=== PATIENT | male | born 1985 | race Caucasian/White ===

== ENCOUNTER 2016-08-03 11:43 | Emergency (ER) | payer SELFPAY ==
--- NOTE | 2016-08-03 12:05 | ER Document Report ---
HPI - HPI Patient complains to provider of: wood right medial thigh causing him to twist leg Onset: This morning Onset/Duration: Sudden Quality of pain: Achy Pain Level: 5 Context: 30 yo male using wood splitter had piece of wood hit his right medial thigh. No puncture through pants. Caused him to twist the leg. Hurts to walk on it. Associated Symptoms: None Exacerbated by: Walking Relieved by: Denies Similar symptoms previously: No Recently seen / treated by doctor: No - ROS ROS below otherwise negative: Yes Systems Reviewed and Negative: Yes All other systems reviewed and negative Past Medical History - General Information source: Patient - Social History Smoking Status: Current Every Day Smoker Frequency of alcohol use: None Drug Abuse: None Lives with: Spouse/Significant other Family History: Reviewed & Not Pertinent Pulmonary Medical History: Reports: Hx Asthma - pediatric Past Surgical History: Reports: Hx Oral Surgery - dental, Hx Tonsillectomy - Immunizations Immunizations up to date: Yes Hx Diphtheria, Pertussis, Tetanus Vaccination: Yes - 2013 Vertical Provider Document - CONSTITUTIONAL Agree With Documented VS: Yes Exam Limitations: No Limitations General Appearance: No Apparent Distress - INFECTION CONTROL TRAVEL OUTSIDE OF THE [place] IN LAST 30 DAYS: No - HEENT HEENT: Normocephalic - NECK Neck: Supple - RESPIRATORY O2 Sat by Pulse Oximetry: 98 - GI/ABDOMEN Gastrointestinal: Abnormal Bowel Sounds - MUSCULOSKELETAL/EXTREMETIES Musculoskeletal/Extremeties: MAEW, FROM, Eccymosis - mild medial right thigh. non tender bone, no knee effusion. negative: No Edema - NEURO Level of Consciousness: Awake, Alert - DERM Integumentary: Warm, Dry, No Rash Course - Vital Signs Vital signs: Temp Pulse Resp BP Pulse Ox 97.6 F 66 18 139/88 H 98 08/03/16 11:51 08/03/16 11:49 08/03/16 11:49 08/03/16 11:49 08/03/16 11:49 Discharge - Discharge Clinical Impression: right thigh contusion, Strain of muscle, fascia and tendon of the posterior muscle group at thigh level, right thigh, initial encounter Condition: Good Disposition: HOME, SELF-CARE Instructions: Warm Packs ([facility]), Oral Narcotic Medication ([facility]), Contusion ([facility]) , Muscle Strain ([facility]), Myalagia (Muscle Pain) ([facility]) Additional Instructions: warm compress to er if worse Prescriptions: Hydrocodone Bit/Acetaminophen [Hydrocodon-Acetaminophen 5-325] 1 - 2 each PO Q4HP PRN #15 tablet PRN Reason: Forms: Return to Work Referrals: NATIVIDAD MARINO PA-C [Primary Care Provider] - Follow up as needed
[2016-08-03 12:27] VITALS: BP 134/78
== END 2016-08-03 12:25 | disposition home or self-care (01) ==
LOC: ER 11:43
DX: S70.11XA Contusion of right thigh, initial encounter (principal); S76.311A Strain of muscle, fascia and tendon of the posterior muscle group at thigh level, right thigh, initial encounter; W20.8XXA Other cause of strike by thrown, projected or falling object, initial encounter; F17.200 Nicotine dependence, unspecified, uncomplicated
CPT/HCPCS: 99283

== ENCOUNTER 2016-08-23 13:24 | Emergency (ER) | payer SELFPAY ==
--- NOTE | 2016-08-23 13:43 | ER Document Report ---
ED Medical Screen (RME) - General Time seen by provider: 13:43 Mode of Arrival: Ambulatory Information source: Patient TRAVEL OUTSIDE OF THE [place] IN LAST 30 DAYS: No - General Stated Complaint: HAND PAIN Notes: 30 yo male got 3rd and 4th right fingertips caught between 2 logs this morning. Ultram did not relieve the pain. (YAHIR MARTINEZ) - Related Data Allergies/Adverse Reactions: erythromycin base [Erythromycin Base] Allergy (Intermediate, Verified 08/23/16 13:44) stabbing abdominal pains ibuprofen [From Motrin] Allergy (Verified 08/23/16 13:44) Past Medical History - Past Medical History Cardiac Medical History: Denies: Hx Coronary Artery Disease, Hx Hypertension Pulmonary Medical History: Reports: Hx Asthma - pediatric Neurological Medical History: Denies: Hx Migraine Endocrine Medical History: Denies: Hx Diabetes Mellitus Type 1, Hx Diabetes Mellitus Type 2 Renal/ Medical History: Denies: Hx Epididymitis, Hx Renal Insufficiency, Hx Testicular Torsion Malignancy Medical History: Denies Hx Testicular Cancer GI Medical History: Denies: Hx Gastritis, Hx Gastroesophageal Reflux Disease, Hx Liver Failure Psychiatric Medical History: Denies: Hx Anxiety, Hx Bipolar Disorder, Hx Depression, Hx Schizophrenia Infectious Medical History: Denies: Hx MRSA Past Surgical History: Reports: Hx Oral Surgery - dental, Hx Tonsillectomy - Immunizations Immunizations up to date: Yes Hx Diphtheria, Pertussis, Tetanus Vaccination: Yes - 2013 Doctor's Discharge - Discharge Clinical Impression: Hand contusion Qualifiers: Encounter type: initial encounter Laterality: unspecified laterality Qualified Code(s): S60.229A - Contusion of unspecified hand, initial encounter Condition: Good Disposition: HOME, SELF-CARE Instructions: Contusion ([facility]), Ice Packs ([facility]) Additional Instructions: Follow-up with your primary care physician. Your x-ray today shows no signs of fracture. Your examination reveals no signs of ligamentous injury. More likely have a back contusion of your hand. Prescriptions: Tramadol HCl [Ultram 50 mg Tablet] 50 mg PO ASDIR PRN #10 tablet PRN Reason: Forms: Return to Work Referrals: NATIVIDAD MARINO PA-C [Primary Care Provider] - Follow up as needed
[2016-08-23 13:45] VITALS: BP 138/73
--- NOTE | 2016-08-23 22:23 | ER Document Report ---
ED General - General Chief Complaint: Hand Injury Stated Complaint: HAND PAIN Mode of Arrival: Ambulatory TRAVEL OUTSIDE OF THE [place] IN LAST 30 DAYS: No - HPI Patient complains to provider of: right hand injury Notes: Patient coming in after having his right hand crushed in between 2 logs working today. Patient states he was in full [place]. Patient states he took Ultram at home with no relief of pain. Patient denies any paresthesias in his hands. Denies fevers chills nausea vomiting. - Related Data Allergies/Adverse Reactions: erythromycin base [Erythromycin Base] Allergy (Intermediate, Verified 08/23/16 13:44) stabbing abdominal pains ibuprofen [From Motrin] Allergy (Verified 08/23/16 13:44) Past Medical History - General Information source: Patient - Social History Smoking Status: Current Every Day Smoker Chew tobacco use (# tins/day): No Frequency of alcohol use: None Drug Abuse: None Family History: Reviewed & Not Pertinent Patient has suicidal ideation: No Patient has homicidal ideation: No - Past Medical History Cardiac Medical History: Denies: Hx Coronary Artery Disease, Hx Hypertension Pulmonary Medical History: Reports: Hx Asthma - pediatric Neurological Medical History: Denies: Hx Migraine Endocrine Medical History: Denies: Hx Diabetes Mellitus Type 1, Hx Diabetes Mellitus Type 2 Renal/ Medical History: Denies: Hx Epididymitis, Hx Peritoneal Dialysis, Hx Renal Insufficiency, Hx Testicular Torsion Malignancy Medical History: Denies Hx Testicular Cancer GI Medical History: Denies: Hx Gastritis, Hx Gastroesophageal Reflux Disease, Hx Liver Failure Psychiatric Medical History: Denies: Hx Anxiety, Hx Bipolar Disorder, Hx Depression, Hx Schizophrenia Infectious Medical History: Denies: Hx MRSA Past Surgical History: Reports: Hx Oral Surgery - dental, Hx Tonsillectomy - Immunizations Immunizations up to date: Yes Hx Diphtheria, Pertussis, Tetanus Vaccination: Yes - 2013 Review of Systems - Review of Systems Constitutional: No symptoms reported EENT: No symptoms reported Cardiovascular: No symptoms reported Respiratory: No symptoms reported Gastrointestinal: No symptoms reported Genitourinary: No symptoms reported Male Genitourinary: No symptoms reported Musculoskeletal: Other - Right hand pain Skin: No symptoms reported Hematologic/Lymphatic: No symptoms reported Neurological/Psychological: No symptoms reported Physical Exam - Vital signs Vitals: Temp Pulse Resp BP Pulse Ox 97.8 F 73 16 138/73 H 99 08/23/16 13:28 08/23/16 13:28 08/23/16 13:28 08/23/16 13:28 08/23/16 13:28 Interpretation: Normal - General General appearance: Appears well, Alert - HEENT Head: Normocephalic, Atraumatic Eyes: Normal Pupils: PERRL - Respiratory Respiratory status: No respiratory distress Chest status: Nontender Breath sounds: Normal Chest palpation: Normal - Cardiovascular Rhythm: Regular Heart sounds: Normal auscultation Murmur: No - Abdominal Inspection: Normal Distension: No distension Bowel sounds: Normal Tenderness: Nontender Organomegaly: No organomegaly - Back Back: Normal, Nontender - Extremities General upper extremity: Nontender, Normal color, Normal ROM, Normal temperature. No: Normal inspection - Multiple abrasions to the right hand Refills less than 2 seconds. Patient is able to make a fist and extend his fingers. Diffuse tenderness mild swelling no signs of compartment syndrome. General lower extremity: Normal inspection, Nontender, Normal color, Normal ROM , Normal temperature, Normal weight bearing. No: Marlon's sign - Neurological Neuro grossly intact: Yes Cognition: Normal Orientation: AAOx4 [place] Coma Scale Eye Opening: Spontaneous [place] Coma Scale Verbal: Oriented [place] Coma Scale Motor: Obeys Commands Kaylah Coma Scale Total: 15 Speech: Normal Motor strength normal: LUE, RUE, LLE, RLE Sensory: Normal - Psychological Associated symptoms: Normal affect, Normal mood - Skin Skin Temperature: Warm Skin Moisture: Dry Skin Color: Normal Course - Re-evaluation Re-evalutation: 08/23/16 22:22 X-rays negative for fracture patient will be given Ultram for pain home recommended that he ice his hand more likely patient is to stop for a contusion. Patient is requesting something stronger. Stated the patient that Ultram should be adequate for his contused hand and apply ice. - Vital Signs Vital signs: Temp Pulse Resp BP Pulse Ox 97.8 F 73 16 138/73 H 99 08/23/16 13:28 08/23/16 13:28 08/23/16 13:28 08/23/16 13:28 08/23/16 13:28 Discharge - Discharge Clinical Impression: Hand contusion Qualifiers: Encounter type: initial encounter Laterality: unspecified laterality Qualified Code(s): S60.229A - Contusion of unspecified hand, initial encounter Condition: Good Disposition: HOME, SELF-CARE Instructions: Contusion ([facility]), Ice Packs ([facility]) Additional Instructions: Follow-up with your primary care physician. Your x-ray today shows no signs of fracture. Your examination reveals no signs of ligamentous injury. More likely have a back contusion of your hand. Prescriptions: Tramadol HCl [Ultram 50 mg Tablet] 50 mg PO ASDIR PRN #10 tablet PRN Reason: Forms: Return to Work
== END 2016-08-23 14:43 | disposition home or self-care (01) ==
LOC: ER 13:24
DX: S60.229A Contusion of unspecified hand, initial encounter (principal); F17.210 Nicotine dependence, cigarettes, uncomplicated; X58.XXXA Exposure to other specified factors, initial encounter
CPT/HCPCS: 99283

== ENCOUNTER 2016-10-18 08:57 | Emergency (ER) | payer SELFPAY ==
--- NOTE | 2016-10-18 10:20 | ER Document Report ---
ED Foreign Body <ISABELA MUELLER - Last Filed: 10/18/16 11:01> - General Mode of Arrival: Ambulatory Information source: Patient TRAVEL OUTSIDE OF THE [place] 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 He wiped it out. Throughout the day the eye became more irritated. It got much worse the following day and today there is swelling to the eyelids, redness to the eye, and photophobia. (ERVINISABELA Christiansen) Patient is a 30 year old male who presents to the emergency department complaining of pain in his left eye. Patient reports that two days ago he believes he got something in it while he was at work for a tree service. Patient states that the pain initially was not so bad but has worsened. Patient reports his roommate gave him some Tramadol for the pain with no relief. (OTONIEL MILLER) - Related Data Allergies/Adverse Reactions: erythromycin base [Erythromycin Base] Allergy (Intermediate, Verified 10/18/16 08:59) stabbing abdominal pains ibuprofen [From Motrin] Allergy (Verified 10/18/16 08:59) Past Medical History - General Information source: Patient - Social History Smoking Status: Current Every Day Smoker Chew tobacco use (# tins/day): No Frequency of alcohol use: None Drug Abuse: None Family History: Reviewed & Not Pertinent Patient has suicidal ideation: No Patient has homicidal ideation: No Pulmonary Medical History: Reports: Hx Asthma - pediatric Past Surgical History: Reports: Hx Oral Surgery - dental, Hx Tonsillectomy - Immunizations Immunizations up to date: Yes Hx Diphtheria, Pertussis, Tetanus Vaccination: Yes - 2013 <OTONIEL MILLER - Last Filed: 10/18/16 11:33> Review of Systems - Review of Systems Constitutional: No symptoms reported EENT: See HPI, Eye pain Cardiovascular: No symptoms reported Respiratory: No symptoms reported Gastrointestinal: No symptoms reported Genitourinary: No symptoms reported Male Genitourinary: No symptoms reported Musculoskeletal: No symptoms reported Skin: No symptoms reported Hematologic/Lymphatic: No symptoms reported Neurological/Psychological: No symptoms reported -: Yes All other systems reviewed and negative <OTONIEL MILLER - Last Filed: 10/18/16 11:33> Physical Exam - HEENT Eyes: Other - The left eyelids are little erythematous and a little edematous. Conjunctiva: Injected - The left scleral conjunctiva is quite injected. The right side is white without inflammation. Cornea: Flourescein stain uptake - There is a thin rim of uptake along the limbus in the spare lateral aspect of the left cornea. There is very hazy uptake across the cornea suggesting minimal irritation., Other - The anterior chamber is clear. Extraocular movements intact: Yes <ISABELA MUELLER - Last Filed: 10/18/16 11:01> Course <ISABELA MUELLER - Last Filed: 10/18/16 11:01> <OTONIEL MILLER - Last Filed: 10/18/16 11:33> - Re-evaluation Re-evalutation: 10/18/16 10:40 Patient claims he is allergic to Motrin and it caused him to break out in a rash. He has received Motrin on numerous occasions in this emergency room as recently as January 2016. He has also received Toradol IV on at least 2 occasions. I advised him that the ketorolac eyedrops were going to be the most effective medication we have available to calm down the inflammation in his eye and make it feel better. 10/18/16 10:44 PROCEDURE: The left eye was anesthetized with tetracaine drops. It was stained with fluorescein stain. The stain was irrigated clear with normal saline. Homatropine drops were put in the eye to dilate it. Ketorolac drops were put in the eye. Then polymyxin sulfate drops in the left eye. Prior to placing the ketorolac drops, additional tetracaine drops were placed in the left to keep anesthetized. Throughout the entire time he is resistant to allow his eyelids to be pulled open, when I attempted to pull brought down lives to expose the eye, he hyperventilates, and he winces in pain when the drops land on the anterior eye. (ISABELA MUELLER) - Vital Signs Vital signs: Temp Pulse Resp BP Pulse Ox 98.2 F 51 L 14 111/60 96 03/18/17 11:21 10/18/16 11:21 10/18/16 11:21 10/18/16 11:21 10/18/16 11:21 Discharge <ISABELA MUELLER - Last Filed: 10/18/16 11:01> <OTONIEL MILLER - Last Filed: 10/18/16 11:33> - Discharge Clinical Impression: Conjunctivitis Qualifiers: Conjunctivitis type: acute Acute conjunctivitis type: unspecified Laterality: left Qualified Code(s): H10.32 - Unspecified acute conjunctivitis, left eye Corneal abrasion Qualifiers: Encounter type: initial encounter Laterality: left Qualified Code(s): S05.02XA - Injury of conjunctiva and corneal abrasion without foreign body, left eye, initial encounter Additional Instructions: Corneal Abrasion: You have a corneal abrasion, a scratch on the surface of the eye. The pain of a corneal abrasion feels like a sharp particle in the eye. Usually, antibiotics are placed in the eye to prevent infection. Occasionally, medication will be placed in the eye to dilate the pupil. This is done to relieve some of your discomfort and is only temporary. Pain medication may be required. Don't drive or operate machinery until you have the use of both your eyes. The abrasion usually is healed in one or two days. A follow-up examination to confirm healing is recommended. Call the doctor or return at once if you develop severe pain, decreasing vision, eye swelling, or purulent drainage. PUT THE KETOROLAC DROPS--ONE DROP IN THE LEFT EYE EVERY FOUR HOURS FOR PAIN AND INFLAMMATION. PUT THE POLYMIXIN SULFATE DROPS--ONE DROP IN THE LEFT EYE EVERY TWO HOURS TODAY , THEN EVERY SIX HOURS TOMORROW. USE COOL COMPRESSES TO THE LEFT EYE TODAY. AVOID WIND AND SUNLIGHT FOR THE NEXT TWO DAYS. FOLLOW UP WITH AN EYE DOCTOR THURSDAY IF NOT IMPROVING. RETURN TO THE EMERGENCY ROOM IF ANY NEW OR WORSENING SYMPTOMS. Prescriptions: Ketorolac Tromethamine [Acular Ls] 1 drop OU Q4 PRN #3 ml PRN Reason: Scribe Attestation: 10/18/16 11:07 I personally performed the services described in the documentation, reviewed and edited the documentation which was dictated to the scribe in my presence, and it accurately records my words and actions. (ISABELA MUELLER) Scribe Documentation - Scribe Written by Scribe:: [email or web address] Soni, 10/18/16, 1133 acting as scribe for :: Ervin <OTONIEL MILLER - Last Filed: 10/18/16 11:33>
[2016-10-18] MEDS ORDERED: KETOROLAC TROMETHAMINE 0.45% 4 DROP/0.4 ML DROPERETTE OS ONE (10:41)
[2016-10-18] MEDS ORDERED: POLYMYXIN B SULFATE/TMP OPH SOLN (10 ML/ER DISP) OS ONE (10:41)
[2016-10-18 11:26] VITALS: BP 111/60
== END 2016-10-18 11:27 | disposition home or self-care (01) ==
LOC: ER 08:57
DX: S05.02XA Injury of conjunctiva and corneal abrasion without foreign body, left eye, initial encounter (principal); H10.32 Unspecified acute conjunctivitis, left eye; H57.12 Ocular pain, left eye; R22.0 Localized swelling, mass and lump, head; F17.200 Nicotine dependence, unspecified, uncomplicated; X58.XXXA Exposure to other specified factors, initial encounter
CPT/HCPCS: 99283; J3490

== ENCOUNTER 2017-03-26 16:13 | Emergency (ER) | payer SELFPAY ==
[2017-03-26] MEDS ORDERED: OXYCODONE HCL IR 5 MG TABLET PO ONE (17:03)
[2017-03-26] MEDS ORDERED: LIDOCAINE 1% INJ-PF (10 MG/ML) 30 ML SDV INJ ONE (17:04)
--- NOTE | 2017-03-26 17:51 | ER Document Report ---
HPI - HPI Pain Level: 5 Notes: Patient is a 31-year-old male who presents the ED complaining of a laceration to his left lateral index finger near the side of the nail from a chainsaw injury today. Patient is also complaining of right medial thigh pain from when the log pinched on his leg. Patient states that he is still ambulatory, but does have pain in his thigh. Patient states on occasion he will have some numbness tingling to the finger. The pain is described as throbbing in both the thigh and the finger without any radiation of the pain. Patient is able to move his finger and his leg. Patient states that he did have a tetanus shot 2- 3 years ago. Patient admits to smoking but denies any other illicit drug use. Denies any significant past medical history otherwise. Denies any headache, fever, head injury, neck pain, chest pain, palpitations, syncope, cough, shortness of breath, wheeze, dyspnea, abdominal pain, nausea/vomiting/diarrhea, urinary retention, dysuria, hematuria, muscle paralysis/weakness, or rash. - ROS Notes: REVIEW OF SYSTEMS: CONSTITUTIONAL : Denies fever, chills, or sweats. Denies recent illness. EENT: Denies eye, ear, throat, or mouth pain or symptoms. Denies nasal or sinus congestion or discharge. Denies throat, tongue, or mouth swelling or difficulty swallowing. CARDIOVASCULAR: Denies chest pain. Denies palpitations or racing or irregular heart beat. Denies ankle edema. RESPIRATORY: Denies cough, cold, or chest congestion. Denies shortness of breath, difficulty breathing, or wheezing. GASTROINTESTINAL: Denies abdominal pain or distention. Denies nausea, vomiting , or diarrhea. Denies blood in vomitus, stools, or per rectum. Denies black, tarry stools. Denies constipation. GENITOURINARY: Denies difficulty urinating, painful urination, burning, frequency, blood in urine, or discharge. MUSCULOSKELETAL: see hpi SKIN: see hpi NEUROLOGICAL: Denies confusion or altered mental status. Denies passing out or loss of consciousness. Denies dizziness or lightheadedness. Denies headache. Denies weakness or paralysis or loss of use of either side. Denies problems with gait or speech. Denies sensory loss, numbness, or tingling. ALL OTHER SYSTEMS REVIEWED AND NEGATIVE. Dictation was performed using Dragon voice recognition software - CARDIOVASCULAR Cardiovascular: DENIES: Chest pain Past Medical History - Social History Smoking Status: Current Every Day Smoker Chew tobacco use (# tins/day): No Frequency of alcohol use: None Drug Abuse: None Family History: Reviewed & Not Pertinent Patient has suicidal ideation: No Patient has homicidal ideation: No - Past Medical History Cardiac Medical History: Denies: Hx Coronary Artery Disease, Hx Hypertension Pulmonary Medical History: Reports: Hx Asthma - pediatric Neurological Medical History: Denies: Hx Migraine Endocrine Medical History: Denies: Hx Diabetes Mellitus Type 1, Hx Diabetes Mellitus Type 2 Renal/ Medical History: Denies: Hx Epididymitis, Hx Peritoneal Dialysis, Hx Renal Insufficiency, Hx Testicular Torsion Malignancy Medical History: Denies Hx Testicular Cancer GI Medical History: Denies: Hx Gastritis, Hx Gastroesophageal Reflux Disease, Hx Liver Failure Psychiatric Medical History: Denies: Hx Anxiety, Hx Bipolar Disorder, Hx Depression, Hx Schizophrenia Infectious Medical History: Denies: Hx MRSA Past Surgical History: Reports: Hx Oral Surgery - dental, Hx Tonsillectomy - Immunizations Immunizations up to date: Yes Hx Diphtheria, Pertussis, Tetanus Vaccination: Yes - 2013 Vertical Provider Document - CONSTITUTIONAL Agree With Documented VS: Yes Notes: PHYSICAL EXAMINATION: GENERAL: Well-appearing, well-nourished and in no acute distress. NECK: Normal range of motion, supple without lymphadenopathy LUNGS: Breath sounds clear to auscultation bilaterally and equal. No wheezes rales or rhonchi. HEART: Regular rate and rhythm without murmurs, rubs, gallops. Musculoskeletal: Rt femur/knee: FROM to passive/active. Strength 5+/5. + small 1-1.5" abrasion to the rt anteromedial thigh. No ecchymosis or laceration noted. No warmth, erythema, cord, or deformity noted. No bony tenderness. + tenderness to the medial thigh, soft tissue. FROM to the knee without tenderness or deficit. N/V intact distal. Lt index finger: FROM to passive/active. Strength 5+/5. + small 0.5cm lac to the lateral nail border not involving the nail. The nail is intact without any separation or avulsion. The lac appears to be a puncture-lac. + tenderness to palp. No bleeding currently. N/V intact distal. Hand exam otherwise unremarkable for any deficits. Extremities: No cyanosis, clubbing, or edema b/l. Peripheral pulses 2+. Capillary refill less than 2 seconds. NEUROLOGICAL: Normal sensory, motor exams PSYCH: Normal mood, normal affect. SKIN: Warm, Dry, normal turgor, no rashes or lesions noted. - INFECTION CONTROL TRAVEL OUTSIDE OF THE [place] IN LAST 30 DAYS: No - RESPIRATORY O2 Sat by Pulse Oximetry: 98 Course - Re-evaluation Re-evalutation: 03/26/17 18:21 Patient is an afebrile, well-hydrated, 31-year-old male who presents the ED with a superficial small laceration to the left lateral distal finger without any nail involvement, and right thigh contusion without any evidence of clot formation or hematoma. Vitals are stable. PE otherwise unremarkable at this time. X-rays of the finger and femur were unremarkable for any acute fracture, foreign body, or dislocation. Oxycodone 5 mg given p.o. today. Wound was thoroughly irrigated, cleansed, and investigated. No suture was warranted for the laceration as we are able to successfully approximate the wound edges with Dermabond and Steri-Strip. I will send him home with a prophylactic antibiotic , Keflex. We will treat conservatively otherwise. Recheck/establish with PCM this week. Consider consult with orthopedics for ongoing/worsening symptoms. Return to the ED with any worsening/concerning symptoms otherwise as reviewed in discharge. Patient is in agreement. - Vital Signs Vital signs: Temp Pulse Resp BP Pulse Ox 97.5 F 116 H 54 H 127/66 H 98 03/26/17 16:37 03/26/17 16:37 03/26/17 16:37 03/26/17 16:37 03/26/17 16:37 Discharge - Discharge Clinical Impression: Injury of left index finger Qualifiers: Encounter type: initial encounter Qualified Code(s): S69.92XA - Unspecified injury of left wrist, hand and finger(s), initial encounter Contusion of thigh, right Qualifiers: Encounter type: initial encounter Qualified Code(s): S70.11XA - Contusion of right thigh, initial encounter Condition: Stable Disposition: HOME, SELF-CARE Instructions: Antibiotic Ointment Protection ([facility]), Laceration Care ([facility]), Prophylactic Antibiotic ([facility]), Soap Cleansing ([facility]) Additional Instructions: Do not shower or bathe for 24 hours. After 24 hours you may shower but no submersion of the wound under water. Keep the original dressing on the wound for 24 hours unless the drainage soaks through. Change the dressing daily thereafter if still draining. You may leave the wound open to the air once there is no more discharge. Return to the ED and/or your PCM in 2-3 days for a recheck. Monitor for any signs of worsening pain or redness, purulent drainage , streaks, and/or fever. Return to the ED if noticing any of the above symptoms or as needed. Take medications as directed. He may take Tylenol 1000 mg with ibuprofen 600 mg p.o. at the same time every 6 hours as needed for pain, but do not do this on a daily basis. Rest, Ice, Compression, Elevation Light stretches daily Strength exercises as able Moist heat and massage may help F/u with your PCP in 2-3 days for a recheck Consider consult(s) with Orthopedics/physical therapy for ongoing/worsening symptoms Return to the ED with any worsening symptoms and/or development of fever, headache, chest pain, palpitations, syncope, shortness of breath, trouble breathing, abdominal pain, n/v/d, muscle weakness/paralysis, numbness/tingling, swelling, redness, warmth, palpable cord, or other worsening symptoms that are concerning to you. Prescriptions: Cephalexin Monohydrate [Keflex 500 mg Capsule] 500 mg PO TID #21 capsule Forms: Elevated Blood Pressure, Smoking Cessation Education Referrals: [facility] [Provider Group] - Follow up as needed [facility] [Provider Group] - Follow up as needed [facility] [Provider Group] - Follow up as needed
--- NOTE | 2017-03-26 18:18 | RADIOLOGY REPORT (SQ) ---
EXAM DESCRIPTION: FEMUR RIGHT COMPLETED DATE/TIME: 03/26/2017 5:25 pm REASON FOR STUDY: rt thigh pain s/p crush injury COMPARISON: None. NUMBER OF VIEWS: Four views. TECHNIQUE: For radiographic images acquired of the right femur to include hip and knee in at least o ne projection. LIMITATIONS: None. FINDINGS: MINERALIZATION: Normal. BONES: No acute fracture. No worrisome bone lesions. SOFT TISSUES: No obvious swelling or foreign body. OTHER: No other significant finding. IMPRESSION: NEGATIVE STUDY OF THE RIGHT FEMUR. NO RADIOGRAPHIC EVIDENCE OF ACUTE INJURY. TECHNICAL DOCUMENTATION: JOB ID: [id number] [employer]- All Rights Reserved
--- NOTE | 2017-03-26 18:20 | RADIOLOGY REPORT (SQ) ---
EXAM DESCRIPTION: FINGER LEFT COMPLETED DATE/TIME: 03/26/2017 5:25 pm REASON FOR STUDY: left index finger injury/lac with chainsaw COMPARISON: None. NUMBER OF VIEWS: Three views. TECHNIQUE: AP, lateral, and oblique images acquired of the left second finger. LIMITATIONS: None. FINDINGS: MINERALIZATION: Normal. BONES: No acute fracture or dislocation. No worrisome bone lesions. SOFT TISSUES: No soft tissue swelling. No foreign body. OTHER: No other significant finding. IMPRESSION: NO RADIOGRAPHIC EVIDENCE OF ACUTE INJURY. COMMENT: SITE OF TRAUMA/COMPLAINT MARKED/STAMP COMPLETED: YES. TECHNICAL DOCUMENTATION: JOB ID: [id number] [employer]- All Rights Reserved
[2017-03-26 18:28] VITALS: BP 142/71
== END 2017-03-26 19:31 | disposition home or self-care (01) ==
LOC: ER 16:13
DX: S70.11XA Contusion of right thigh, initial encounter (principal); S69.92XA Unspecified injury of left wrist, hand and finger(s), initial encounter; S61.211A Laceration without foreign body of left index finger without damage to nail, initial encounter; M79.651 Pain in right thigh; W45.8XXA Other foreign body or object entering through skin, initial encounter; F17.200 Nicotine dependence, unspecified, uncomplicated
CPT/HCPCS: 99283

== ENCOUNTER 2018-04-13 14:49 | Observation (INO) | payer OTHER ==
[2018-04-13] MEDS ORDERED: ANTIVENIN,CROTALIDAE FAB(OVIN) INJ 1 VIAL IV ONE ×3 (14:58→19:35)
--- NOTE | 2018-04-13 15:05 | ER Document Report ---
ED Snake Bite - General Chief Complaint: Snake Bite Stated Complaint: POSSIBLE SNAKE BITE Time Seen by Provider: 04/13/18 14:58 Mode of Arrival: Ambulatory Information source: Patient TRAVEL OUTSIDE OF THE [place] IN LAST 30 DAYS: No - HPI Patient complains to provider of: SNAKEBITE R. INDEX FINGER Onset: Just prior to arrival - [place]PROX. 1400 HRS. Where: Outdoors Location of injury: RUE - INDEX FINGER, PROX. [place] Type of snake: UNSURE, LIKELY COPPERHEAD, LESS LIKELY RATTLESNAKE Animal captured or known: No Animal control notified: No Quality of pain: Stabbing Severity: Bitten, Envenomation - APPEARS MILD Context of attack: Entered snake's domain Lost Consciousness: No Remembers: Injury, Coming to hospital Prehospital treatment: Other - [facility] Associated Symptoms: None - Related Data Allergies/Adverse Reactions: erythromycin base [Erythromycin Base] Allergy (Intermediate, Verified 04/13/18 14:50) stabbing abdominal pains ibuprofen [From Motrin] Allergy (Verified 04/13/18 14:50) Past Medical History - General Information source: Patient - Social History Smoking Status: Current Every Day Smoker Cigarette use (# per day): Yes Chew tobacco use (# tins/day): No Smoking Education Provided: No Frequency of alcohol use: Occasional Drug Abuse: None Lives with: Family Family History: Reviewed & Not Pertinent Patient has suicidal ideation: No Patient has homicidal ideation: No - Past Medical History Cardiac Medical History: Reports: None Denies: Hx Coronary Artery Disease, Hx Hypertension Pulmonary Medical History: Reports: Hx Asthma - pediatric Neurological Medical History: Reports: None. Denies: Hx Migraine Endocrine Medical History: Reports: None. Denies: Hx Diabetes Mellitus Type 1, Hx Diabetes Mellitus Type 2 Renal/ Medical History: Reports: None. Denies: Hx Epididymitis, Hx Peritoneal Dialysis, Hx Renal Insufficiency, Hx Testicular Torsion Malignancy Medical History: Reports None, Denies Hx Testicular Cancer GI Medical History: Reports: None. Denies: Hx Gastritis, Hx Gastroesophageal Reflux Disease, Hx Liver Failure Musculoskeletal Medical History: Reports None Psychiatric Medical History: Reports: None Denies: Hx Anxiety, Hx Bipolar Disorder, Hx Depression, Hx Schizophrenia Infectious Medical History: Denies: Hx MRSA Past Surgical History: Reports: Hx Oral Surgery - dental, Hx Tonsillectomy - Immunizations Immunizations up to date: Yes Hx Diphtheria, Pertussis, Tetanus Vaccination: Yes - 2013 Review of Systems - Review of Systems Constitutional: No symptoms reported EENT: No symptoms reported Cardiovascular: No symptoms reported Respiratory: No symptoms reported Gastrointestinal: No symptoms reported Genitourinary: No symptoms reported Musculoskeletal: No symptoms reported Skin: See HPI Neurological/Psychological: No symptoms reported Physical Exam - Vital signs Vitals: Temp Pulse Resp BP Pulse Ox 97.9 F 62 16 130/83 H 96 04/13/18 14:51 04/13/18 14:51 04/13/18 14:51 04/13/18 14:51 04/13/18 14:51 Interpretation: Normal - General General appearance: Alert, Anxious In distress: Mild - DUE TO PAIN - HEENT Head: Normocephalic Eyes: Normal Conjunctiva: Normal Ears: Normal Nasal: Normal Mouth/Lips: Normal Mucous membranes: Normal - Respiratory Respiratory status: No respiratory distress - Cardiovascular Rhythm: Regular - Abdominal Inspection: Normal Distension: No distension - Back Back: Normal - Extremities General upper extremity: No: Normal inspection - R. INDEX FINGER (SEE BELOW) General lower extremity: Normal inspection Hand: Other - 2 PUNCTURE WOUNDS MIDDLE OF PROXIMAL PHALANX R. INDEX FINGER. MILD ECCHYMOSIS & EDEMA, MARKEDLY TENDER. NAIL BED CAP REFILL NORMAL. Course - Vital Signs Vital signs: Temp Pulse Resp BP Pulse Ox 97.9 F 62 11 L 130/83 H 99 04/13/18 14:51 04/13/18 14:51 04/13/18 19:00 04/13/18 14:51 04/13/18 19:00 - Laboratory Result Diagrams: 04/13/18 18:43 04/13/18 15:00 Laboratory results interpreted by me: 04/13/18 04/13/18 04/13/18 15:00 15:00 17:36 WBC 14.9 H RBC Hgb RDW 14.5 H Absolute Neutrophils Absolute Lymphocytes 6.7 H Fibrinogen Potassium 3.2 L Glucose 130 H Urine Protein 30 H Urine Urobilinogen 2.0 H Urine Ascorbic Acid 20 H 04/13/18 04/13/18 18:43 18:43 WBC 16.9 H RBC 4.32 L Hgb 13.1 L RDW 14.3 H Absolute Neutrophils 10.9 H Absolute Lymphocytes 5.1 H Fibrinogen 202 L Potassium Glucose Urine Protein Urine Urobilinogen Urine Ascorbic Acid - EKG Interpretation by Sd EKG shows normal: Sinus rhythm, [place], Intervals. abnormal: QRS Complexes Rate: Normal Rhythm: NSR [place]/QRS: IVCD - Consults DR. REHMAN Time consulted: 16:45 Reason for consultation: 04/13/18 18:[address] GUZMAN Time consulted: 18:20 Reason for consultation: 04/13/18 18:29 AGREES TO ADMIT. Discharge - Discharge Clinical Impression: Snake envenomation Qualifiers: Encounter type: initial encounter Injury intent: accidental or unintentional Qualified Code(s): T63.001A - Toxic effect of unspecified snake venom, accidental (unintentional), initial encounter Condition: Stable Disposition: ADMITTED OBSERVATION Admitting Provider: Hospitalist Unit Admitted: Surgical Floor
[2018-04-13 15:17] LABS: ABSOLUTE BASOPHILS # (AUTO) 0.2 10^3/uL (0.0-0.2); ABSOLUTE EOSINOPHILS # (AUTO) 0.2 10^3/uL (0.0-0.6); ABSOLUTE LYMPHOCYTES (AUTO) 6.7 10^3/uL (0.5-4.7); ABSOLUTE MONOCYTES (AUTO) 0.7 10^3/uL (0.1-1.4); ABSOLUTE NEUT (AUTO) 7.2 10^3/uL (1.7-8.2); EOSINOPHILS % (AUTO) 1.3 % (0-6); HEMATOCRIT 43.4 % (37.9-51.0); HEMOGLOBIN 14.5 g/dL (13.5-17.0); LYMPHOCYTES % (AUTO) 44.7 % (13-45); MEAN CORPUSCULAR HGB CONC 33.5 g/dL (32.0-36.0); MEAN CORPUSCULAR VOLUME 90 fl (80-97); MONOCYTES % (AUTO) 4.5 % (3-13); PLATELET COUNT 359 10^3/uL (150-450); RED BLOOD COUNT 4.84 10^6/uL (4.35-5.55); RED CELL DISTRIBUTION WIDTH 14.5 % (11.5-14.0); SEGMENTED NEUTROPHILS % (AUTO) 48.5 % (42-78); TOTAL CELLS COUNTED % (AUTO) 100 %; WHITE BLOOD COUNT 14.9 10^3/uL (4.0-10.5)
[2018-04-13] MEDS ORDERED: HYDROMORPHONE HCL INJ/PF 2 MG/ML AMPULE IV ONE ×3 (15:28→19:36)
[2018-04-13 15:31] LABS: FIBRINOGEN 248 mg/dL (209-497); INTERNATIONAL RATION (INR) 0.99; PARTIAL THROMBOPLASTIN TIME 25.3 SEC (23.5-35.8); PROTHROMBIN TIME 13.6 SEC (11.4-15.4)
[2018-04-13 15:35] LABS: ANION GAP 9 (5-19); BLOOD UREA NITROGEN 8 mg/dL (7-20); CALCIUM 9.2 mg/dL (8.4-10.2); CARBON DIOXIDE 29 mmol/L (22-30); CHLORIDE 103 mmol/L (98-107); CREATINE KINASE 127 U/L (55-170); GLUCOSE 130 mg/dL (75-110); POTASSIUM 3.2 mmol/L (3.6-5.0); SODIUM 140.5 mmol/L (137-145)
[2018-04-13 15:46] LABS: D-DIMER < 0.27 ug/mL (0.00-0.50)
[2018-04-13] MEDS ORDERED: NORMAL SALINE 1000 ML 1,000 ML IV PRN ×2 (16:47→22:45)
[2018-04-13 18:00] LABS: APPEARANCE,URINE SLIGHTLY-CLOUDY; BILIRUBIN,URINE NEGATIVE (NEGATIVE); COLOR,URINE YELLOW; GLUCOSE, URINE NEGATIVE (NEGATIVE); KETONES,URINE NEGATIVE (NEGATIVE); LEUKOCYTE ESTERASE,URINE NEGATIVE (NEGATIVE); NITRITE,URINE NEGATIVE (NEGATIVE); PROTEIN,URINE 30 mg/dL (NEGATIVE)
[2018-04-13] MEDS ORDERED: CEFAZOLIN 1 GM/D5W RTU 1 GM/50 ML RTUPB IV ONE (18:24)
[2018-04-13 18:55] LABS: ABSOLUTE BASOPHILS # (AUTO) 0.1 10^3/uL (0.0-0.2); ABSOLUTE EOSINOPHILS # (AUTO) 0.1 10^3/uL (0.0-0.6); ABSOLUTE LYMPHOCYTES (AUTO) 5.1 10^3/uL (0.5-4.7); ABSOLUTE MONOCYTES (AUTO) 0.6 10^3/uL (0.1-1.4); ABSOLUTE NEUT (AUTO) 10.9 10^3/uL (1.7-8.2); BASOPHILS % (AUTO) 0.6 % (0-2); EOSINOPHILS % (AUTO) 0.6 % (0-6); HEMOGLOBIN 13.1 g/dL (13.5-17.0); LYMPHOCYTES % (AUTO) 30.5 % (13-45); MEAN CORPUSCULAR HEMOGLOBIN 30.4 pg (27.0-33.4); MEAN CORPUSCULAR HGB CONC 33.7 g/dL (32.0-36.0); MEAN CORPUSCULAR VOLUME 90 fl (80-97); MONOCYTES % (AUTO) 3.8 % (3-13); PLATELET COUNT 282 10^3/uL (150-450); RED BLOOD COUNT 4.32 10^6/uL (4.35-5.55); RED CELL DISTRIBUTION WIDTH 14.3 % (11.5-14.0); SEGMENTED NEUTROPHILS % (AUTO) 64.5 % (42-78); TOTAL CELLS COUNTED % (AUTO) 100 %; WHITE BLOOD COUNT 16.9 10^3/uL (4.0-10.5)
[2018-04-13 19:04] LABS: INTERNATIONAL RATION (INR) 1.07; PROTHROMBIN TIME 14.4 SEC (11.4-15.4)
[2018-04-13 19:05] LABS: FIBRINOGEN 202 mg/dL (209-497); PARTIAL THROMBOPLASTIN TIME 27.5 SEC (23.5-35.8)
--- NOTE | 2018-04-13 22:28 | PDOC H&P ---
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 Went to ED right away and given venom antidote. ER physician claims patient had tetanus vaccine 4 years ago and therefore still covered. Denies fever/chills. C/O severe pains on his right hand especially along the index finger. Denies numbness but further complains of decrease flexion function of all fingers of the right hand. Past Medical History Cardiac Medical History: Reports: None Denies: Coronary Artery Disease, Hypertension Pulmonary Medical History: Reports: Asthma - pediatric Neurological Medical History: Reports: None Denies: Migraine Endocrine Medical History: Reports: None Denies: Diabetes Mellitus Type 1, Diabetes Mellitus Type 2 Renal/ Medical History: Reports: None Malignancy Medical History: Reports: None GI Medical History: Reports: None Denies: Gastroesophageal Reflux Disease Musculoskeltal Medical History: Reports: None Psychiatric Medical History: Reports: None Denies: Bipolar Disorder, Depression Infectious Medical History: Denies: Methicillin-Resistant Staph Aureus Past Surgical History Past Surgical History: Reports: Tonsillectomy Social History Lives with: Family Smoking Status: Current Every Day Smoker Family History Family History: Reviewed & Not Pertinent Parental Family History Reviewed: Yes - father with Diabetes Children Family History Reviewed: No Sibling(s) Family History Reviewed.: No Medication/Allergy Home Medications: No Home Medications 04/13/18 Allergies/Adverse Reactions: erythromycin base [Erythromycin Base] Allergy (Intermediate, Verified 04/13/18 14:50) stabbing abdominal pains ibuprofen [From Motrin] Allergy (Verified 04/13/18 14:50) Review of Systems Constitutional: PRESENT: as per HPI Eyes: PRESENT: other - no visual/hearing changes Nose, Mouth, and Throat: PRESENT: other - no headache Cardiovascular: PRESENT: other - no chest pains/cough Gastrointestinal: PRESENT: other - no pains Genitourinary: PRESENT: other - no dysuria Integumentary: PRESENT: other - pains right hand Neurological: PRESENT: other - no seizures Hematologic/Lymphatic: PRESENT: other - no easy bruising Physical Exam Vital Signs: Temp Pulse Resp BP Pulse Ox 97.6 F 62 17 130/83 H 98 04/13/18 19:41 04/13/18 14:51 04/13/18 20:00 04/13/18 14:51 04/13/18 20:00 General appearance: PRESENT: mild distress Head exam: PRESENT: atraumatic Eye exam: PRESENT: conjunctiva pink Mouth exam: PRESENT: moist Neck exam: PRESENT: full ROM Respiratory exam: PRESENT: clear to auscultation fabian Cardiovascular exam: PRESENT: RRR Pulses: PRESENT: normal radial pulses GI/Abdominal exam: PRESENT: soft Rectal exam: PRESENT: deferred Extremities exam: PRESENT: tenderness - whole right hand Moderate edema right hand and all fingers., other - Right hand and fingers moderately swollen. Has good sensation on all fingers but could not flex all fingers of the right hand Puctured wound right index finger lateral side at the midlle phalanx area. Neurological exam: PRESENT: alert, oriented to person, oriented to place, oriented to time, oriented to situation Psychiatric exam: PRESENT: anxious Skin exam: PRESENT: normal color, warm Assessment & Plan - Time Time Spent: 30 to 50 Minutes - Inpatient Certification Medical Necessity: Need For IV Fluids, Need for Pain Control, Need for IV Antibiotics, Need for Surgery - Plan Summary Plan Summary: Had anti venom meds. Start IV antibiotics Elevate righ thand just above heart to try to decrease the edema Ortho(Hand) consult Repeat coagulation factors and CBC with Diff in am.
[2018-04-13] MEDS ORDERED: CIPROFLOXACIN 400 MG/D5W RTU 400 MG/200 ML RTUPB IV ONE (23:10)
--- NOTE | 2018-04-13 23:13 | EKG REPORT ---
SEVERITY:- ABNORMAL ECG - SINUS RHYTHM NONSPECIFIC INTRAVENTRICULAR CONDUCTION DELAY : Confirmed by: Malik Mosher 13-Apr-2018 23:13:19
[2018-04-13] MEDS: HYDROMORPHONE HCL INJ/PF 2 MG/ML AMPULE IV PRN (23:14)
[2018-04-13 23:52] LABS: ABSOLUTE BASOPHILS # (AUTO) 0.1 10^3/uL (0.0-0.2); ABSOLUTE EOSINOPHILS # (AUTO) 0.2 10^3/uL (0.0-0.6); ABSOLUTE NEUT (AUTO) 10.9 10^3/uL (1.7-8.2); BASOPHILS % (AUTO) 0.7 % (0-2); EOSINOPHILS % (AUTO) 1.1 % (0-6); HEMATOCRIT 39.6 % (37.9-51.0); HEMOGLOBIN 13.5 g/dL (13.5-17.0); LYMPHOCYTES % (AUTO) 32.9 % (13-45); MEAN CORPUSCULAR HEMOGLOBIN 30.4 pg (27.0-33.4); MEAN CORPUSCULAR HGB CONC 34.1 g/dL (32.0-36.0); MEAN CORPUSCULAR VOLUME 89 fl (80-97); MONOCYTES % (AUTO) 5.6 % (3-13); PLATELET COUNT 272 10^3/uL (150-450); RED BLOOD COUNT 4.44 10^6/uL (4.35-5.55); RED CELL DISTRIBUTION WIDTH 14.3 % (11.5-14.0); SEGMENTED NEUTROPHILS % (AUTO) 59.7 % (42-78); TOTAL CELLS COUNTED % (AUTO) 100 %; WHITE BLOOD COUNT 18.2 10^3/uL (4.0-10.5)
[2018-04-14] MEDS: METRONIDAZOLE 500 MG/NS RTU 500 MG/100 ML RTUPB IV SCH ×2 (00:57→06:41)
[2018-04-14] MEDS: HYDROMORPHONE HCL INJ/PF 2 MG/ML AMPULE IV PRN ×4 (02:21→09:25)
[2018-04-14 05:59] LABS: INTERNATIONAL RATION (INR) 0.99; PROTHROMBIN TIME 13.6 SEC (11.4-15.4)
[2018-04-14 06:00] LABS: FIBRINOGEN 240 mg/dL (209-497)
--- NOTE | 2018-04-14 07:30 | PDOC CONSULTATION ---
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 Patient was brought to the emergency room, admitted to the surgical service and given CroFab per protocol. Since that time the patient has continued to complain of pain although states that the swelling may be decreasing. Past Medical History Cardiac Medical History: Reports: None Denies: Congestive Heart Failure, Coronary Artery Disease, Myocardial Infarction, Hypertension Pulmonary Medical History: Denies: Asthma, Bronchitis, Chronic Obstructive Pulmonary Disease (COPD), Pneumonia, Tuberculosis Neurological Medical History: Reports: None Denies: Migraine, Seizures Endocrine Medical History: Reports: None Denies: Diabetes Mellitus Type 1, Diabetes Mellitus Type 2 Renal/ Medical History: Reports: None Denies: End Stage Renal Disease Malignancy Medical History: Reports: None GI Medical History: Reports: None Denies: Cirrhosis, Gastroesophageal Reflux Disease Musculoskeltal Medical History: Reports: None Denies: Arthritis Psychiatric Medical History: Reports: None Denies: Bipolar Disorder, Depression Hematology: Denies: Anemia, Bleeding Tendencies Infectious Medical History: Denies: Methicillin-Resistant Staph Aureus Past Surgical History Past Surgical History: Reports: Tonsillectomy, Other - Right forearm laceration Social History Information Source: Patient, [facility] Records Lives with: Family Smoking Status: Current Every Day Smoker Drugs: None - Advance Directive Resuscitation Status: Full Code Family History Family History: Reviewed & Not Pertinent Parental Family History Reviewed: No Children Family History Reviewed: No Sibling(s) Family History Reviewed.: No Medication/Allergy Home Medications: No Home Medications 04/13/18 Allergies/Adverse Reactions: erythromycin base [Erythromycin Base] Allergy (Intermediate, Verified 04/13/18 14:50) stabbing abdominal pains ibuprofen [From Motrin] Allergy (Verified 04/13/18 14:50) Review of Systems All systems: as per H Physical Exam Vital Signs: Temp Pulse Resp BP Pulse Ox 36.4 C 61 18 119/81 100 04/14/18 02:35 04/14/18 02:35 04/14/18 02:35 04/14/18 02:35 04/14/18 02:35 Intake & Output 04/13/18 04/14/18 04/15/18 06:59 06:59 06:59 Intake Total 1302 Balance 1302 Weight 81.647 kg General appearance: PRESENT: mild distress, thin Head exam: PRESENT: normocephalic Respiratory exam: PRESENT: unlabored Cardiovascular exam: PRESENT: RRR Vascular exam: PRESENT: normal capillary refill GI/Abdominal exam: PRESENT: soft Rectal exam: PRESENT: deferred Extremities exam: PRESENT: other - The patient is a relatively thin middle-aged white male lying in bed with a right upper extremity immobilized on a pillow. There is multiple levels of Ink demarcation from presumed previous levels of erythema that seem to be decreasing. There continues to be a fair amount of induration beginning at the mid metacarpal region extending distally over the radial 3 digits. There is puncture wounds over the proximal phalanx of the index finger which are dry. There is brisk capillary refill in nail bed and sensory examination is intact to light touch. Neurological exam: PRESENT: alert, awake, oriented to person, oriented to place , oriented to time, oriented to situation. ABSENT: motor sensory deficit Psychiatric exam: PRESENT: appropriate affect, normal mood. ABSENT: homicidal ideation, suicidal ideation Skin exam: PRESENT: dry, intact, warm. ABSENT: cyanosis, rash Results Laboratory Results: 04/13/18 23:38 04/13/18 23:38 WBC 18.2 H RBC 4.44 Hgb 13.5 Hct 39.6 MCV 89 MCH 30.4 MCHC 34.1 RDW 14.3 H Plt Count 272 Seg Neutrophils % 59.7 Lymphocytes % 32.9 Monocytes % 5.6 Eosinophils % 1.1 Basophils % 0.7 Absolute Neutrophils 10.9 H Absolute Lymphocytes 6.0 H Absolute Monocytes 1.0 Absolute Eosinophils 0.2 Absolute Basophils 0.1 Status: Imported from PACS Assessment & Plan - Diagnosis (1) Snake envenomation Qualifiers: Encounter type: initial encounter Injury intent: accidental or unintentional Qualified Code(s): T63.001A - Toxic effect of unspecified snake venom, accidental (unintentional), initial encounter Plan: At this point the patient's symptoms seem to be decreasing as does his swelling. He is going to administer the appropriate dose of antivenom. At this point I think he can be is observed on an outpatient basis. I do not think that antibiotics are warranted. - Time Time Spent: 50 to 70 Minutes Anticipated discharge: Home Within: Other
[2018-04-14 08:08] VITALS: BP 112/70
[2018-04-14] MEDS ORDERED: CIPROFLOXACIN 400 MG/D5W RTU 400 MG/200 ML RTUPB IV SCH (10:00)
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
[2018-04-14] MEDS ORDERED: OXYCODONE-ACETAMINOPHEN 5-325 MG TABLET PO PRN (12:13)
[2018-04-14] MEDS ORDERED: ONDANSETRON 4 MG TAB.RAPDIS PO PRN (12:14)
== END 2018-04-14 14:00 | disposition home or self-care (01) ==
LOC: ER 14:49 → EH 20:42 → 4N 04-14 02:30
PROVIDERS: ADMIT Surgery; ATTEND Surgery
PROC: 3E0334Z Introduction of Serum, Toxoid and Vaccine into Peripheral Vein, Percutaneous Approach (ICD-10-PCS; principal; 2018-04-13)
DX: T63.011A Toxic effect of rattlesnake venom, accidental (unintentional), initial encounter (principal); Y92.828 Other wilderness area as the place of occurrence of the external cause; Y99.0 Civilian activity done for income or pay; F17.210 Nicotine dependence, cigarettes, uncomplicated; Z29.12 Encounter for prophylactic antivenin
CPT/HCPCS: 93005; 96376; 99285; 96361; 96375; 96365; 96367; 36415 ×2; 87040; 82550; 85025; 85384 ×2; 85362; 85610 ×2; 85730; 83874; 80048; 81001; 85379; 93010; J0690; J0840; S0119; J1170 ×2; J7030; J0744

== ENCOUNTER 2018-04-23 12:29 | Emergency (ER) | payer OTHER ==
[2018-04-23] MEDS ORDERED: ACETAMINOPHEN 325 MG TABLET PO ONE (13:26)
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
--- NOTE | 2018-04-23 14:10 | RADIOLOGY REPORT (SQ) ---
EXAM DESCRIPTION: HAND RIGHT 3 VIEWS COMPLETED DATE/TIME: 04/23/2018 1:59 pm REASON FOR STUDY: 10 days post snake bite COMPARISON: None. EXAM PARAMETERS: NUMBER OF VIEWS: Three views. TECHNIQUE: AP, lateral and oblique radiographic images acquired of the right hand. LIMITATIONS: None. FINDINGS: MINERALIZATION: Normal. BONES: No acute fracture or dislocation. No worrisome bone lesions. JOINTS: No effusion. SOFT TISSUES: Mild 2nd digit soft tissue swelling. No radiopaque foreign body. OTHER: No other significant finding. IMPRESSION: NO FRACTURE. TECHNICAL DOCUMENTATION: JOB ID: [id number] [place]-72 2010 [employer]- All Rights Reserved Reading location - IP/workstation name: [email or web address]
[2018-04-23] MEDS ORDERED: PREDNISONE 20 MG TABLET PO ONE (14:48)
[2018-04-23 14:58] VITALS: BP 136/77
== END 2018-04-23 14:59 | disposition home or self-care (01) ==
LOC: ER 12:29
DX: M79.641 Pain in right hand (principal); T63.011D Toxic effect of rattlesnake venom, accidental (unintentional), subsequent encounter; X58.XXXD Exposure to other specified factors, subsequent encounter
CPT/HCPCS: 99282; 73130; J7512

== ENCOUNTER 2018-04-25 19:37 | Emergency (ER) | payer OTHER ==
[2018-04-25 22:05] LABS: ABSOLUTE BASOPHILS # (AUTO) 0.1 10^3/uL (0.0-0.2); ABSOLUTE EOSINOPHILS # (AUTO) 0.2 10^3/uL (0.0-0.6); ABSOLUTE LYMPHOCYTES (AUTO) 4.4 10^3/uL (0.5-4.7); ABSOLUTE MONOCYTES (AUTO) 0.7 10^3/uL (0.1-1.4); ABSOLUTE NEUT (AUTO) 6.8 10^3/uL (1.7-8.2); BASOPHILS % (AUTO) 0.7 % (0-2); EOSINOPHILS % (AUTO) 1.3 % (0-6); HEMATOCRIT 42.2 % (37.9-51.0); HEMOGLOBIN 14.4 g/dL (13.5-17.0); LYMPHOCYTES % (AUTO) 36.2 % (13-45); MEAN CORPUSCULAR HEMOGLOBIN 30.7 pg (27.0-33.4); MEAN CORPUSCULAR HGB CONC 34.2 g/dL (32.0-36.0); MEAN CORPUSCULAR VOLUME 90 fl (80-97); MONOCYTES % (AUTO) 5.6 % (3-13); PLATELET COUNT 266 10^3/uL (150-450); RED BLOOD COUNT 4.69 10^6/uL (4.35-5.55); RED CELL DISTRIBUTION WIDTH 14.9 % (11.5-14.0); SEGMENTED NEUTROPHILS % (AUTO) 56.2 % (42-78); TOTAL CELLS COUNTED % (AUTO) 100 %; WHITE BLOOD COUNT 12.2 10^3/uL (4.0-10.5)
[2018-04-25 22:27] LABS: ALANINE AMINOTRANSFERASE 31 U/L (21-72); ALBUMIN 4.4 g/dL (3.5-5.0); ALKALINE PHOSPHATASE 48 U/L (38-126); ANION GAP 7 (5-19); ASPARTATE AMINO TRANSFERASE 26 U/L (17-59); BILIRUBIN,DIRECT 0.4 mg/dL (0.0-0.4); BILIRUBIN,TOTAL 0.8 mg/dL (0.2-1.3); BLOOD UREA NITROGEN 4 mg/dL (7-20); CALCIUM 9.5 mg/dL (8.4-10.2); CARBON DIOXIDE 31 mmol/L (22-30); CHLORIDE 102 mmol/L (98-107); GLUCOSE 93 mg/dL (75-110); POTASSIUM 3.8 mmol/L (3.6-5.0); SODIUM 140.4 mmol/L (137-145); TOTAL PROTEIN 6.9 g/dL (6.3-8.2)
[2018-04-26 02:48] VITALS: BP 140/97
--- NOTE | 2018-04-26 04:23 | RADIOLOGY REPORT (SQ) ---
EXAM DESCRIPTION: XR HAND 3 OR MORE VIEWS COMPLETED DATE/TME: 04/26/2018 02:07 CLINICAL HISTORY: 32 years, Male, pain rt hand/2nd digit. snake bite 10 days ago COMPARISON: 04/23/2018 FINDINGS: 3 views of the right hand. No acute fracture or dislocation. Normal osseous mineralization. No radiopaque foreign bodies. IMPRESSION: 1. No acute fracture or dislocation. 2010 [employer]- All Rights Reserved
--- NOTE | 2018-04-26 06:15 | ER Document Report ---
ED General - General Chief Complaint: Snake Bite Stated Complaint: SNAKE BITE TRAVEL OUTSIDE OF THE [place] IN LAST 30 DAYS: No - HPI Notes: Patient is a 32-year-old male that presents to the emergency department for chief complaint of snakebite to right arm. Patient was bit by a baby rattlesnake on 04/13/18. He presents the emergency room today asking for refill of pain medication. He states that the pain is sharp and radiates up his right arm. It is worse with movement. He has tried Tylenol at home with minimal relief. He denies any new injury or trauma. He denies increased swelling, redness or fevers. He has not been able to establish follow-up. Past Medical History: Negative Past Surgical History: Dental extractions Social History: Daily tobacco, denies drugs and alcohol Family History: Reviewed and noncontributory for presenting illness Allergies: Reviewed, see documented allergy list. REVIEW OF SYSTEMS: CONSTITUTIONAL : No fever No chills No diaphoresis No recent illness EENT: No vision changes No congestion No sore throat CARDIOVASCULAR: No chest pain No palpitations RESPIRATORY: No shortness of breath No cough No difficulty breathing GASTROINTESTINAL: No abdominal pain No nausea No vomiting No diarrhea GENITOURINARY: No dysuria No hematuria No difficulty urinating MUSCULOSKELETAL: No back pain No leg pain arm pain SKIN: No rashes No lesions LYMPHATIC: No swollen, enlarged glands. NEUROLOGICAL: No lightheadedness No headache No weakness No paresthesias PSYCHIATRIC: No anxiety No depression PHYSICAL EXAMINATION: Vital signs reviewed, nursing noted reviewed. GENERAL: Well-appearing, well-nourished and in no acute distress. HEAD: Atraumatic, normocephalic. EYES: Eyes appear normal, extraocular movements intact, sclera anicteric, conjunctiva are normal. ENT: nares patent, oropharynx clear without exudates. Moist mucous membranes. NECK: Normal range of motion, supple without lymphadenopathy LUNGS: Breath sounds clear to auscultation bilaterally and equal. No wheezes rales or rhonchi. HEART: Regular rate and rhythm without murmurs ABDOMEN: Soft, nontender, normoactive bowel sounds. No rebound, guarding, or rigidity. No masses appreciated. EXTREMITIES: Nontender, good range of motion, no pitting or edema. NEUROLOGICAL: No focal neurological deficits. Moves all extremities spontaneously Motor and sensory grossly intact on exam. PSYCH: Normal mood, normal affect. SKIN: Warm, Dry, normal turgor, no rashes or lesions noted on exposed skin. No right hand erythema, edema, or lesions consistent with snakebite - Related Data Allergies/Adverse Reactions: erythromycin base [Erythromycin Base] Allergy (Intermediate, Verified 04/23/18 12:30) stabbing abdominal pains ibuprofen [From Motrin] Allergy (Verified 04/23/18 12:30) Past Medical History - Social History Smoking Status: Current Every Day Smoker Frequency of alcohol use: None Drug Abuse: None Family History: Reviewed & Not Pertinent Patient has suicidal ideation: No Patient has homicidal ideation: No - Past Medical History Cardiac Medical History: Denies: Hx Congestive Heart Failure, Hx Coronary Artery Disease, Hx Heart Attack, Hx Hypertension Pulmonary Medical History: Denies: Hx Asthma, Hx Bronchitis, Hx COPD, Hx Pneumonia, Hx Tuberculosis Neurological Medical History: Denies: Hx Migraine, Hx Seizures Endocrine Medical History: Denies: Hx Diabetes Mellitus Type 1, Hx Diabetes Mellitus Type 2 Renal/ Medical History: Denies: Hx Benign Prostatic Hyperplasia, Hx End Stage Renal Disease, Hx Epididymitis, Hx Kidney Stones, Hx Peritoneal Dialysis, Hx Renal Insufficiency, Hx Testicular Torsion Malignancy Medical History: Denies Hx Testicular Cancer GI Medical History: Denies: Hx Cirrhosis, Hx Gastritis, Hx Gastroesophageal Reflux Disease, Hx Liver Failure, Hx Ulcer Musculoskeletal Medical History: Denies Hx Arthritis, Denies Hx Multiple Sclerosis Psychiatric Medical History: Denies: Hx Anxiety, Hx Bipolar Disorder, Hx Depression, Hx Schizophrenia Infectious Medical History: Denies: Hx MRSA Past Surgical History: Reports: Hx Oral Surgery - dental, Hx Tonsillectomy, Other - Right forearm laceration - Immunizations Immunizations up to date: Yes Hx Diphtheria, Pertussis, Tetanus Vaccination: Yes - 2013 Review of Systems - Review of Systems Notes: Dictated Physical Exam - Vital signs Vitals: Temp Pulse Resp BP Pulse Ox 98.2 F 72 18 141/94 H 97 04/25/18 19:43 04/25/18 19:43 04/25/18 19:43 04/25/18 19:43 04/25/18 19:43 - Notes Notes: Dictated Course - Re-evaluation Re-evalutation: 04/26/18 06:12 Vitals reviewed and stable. Patient has no external signs of his snake bite. The bite has healed well and is not infected. He has full normal range of motion of the right upper extremity with no fevers or chills. There is no bony deformity or tenderness. Patient was counseled on anti-inflammatory and ice as well as rest. He was encouraged to seek follow-up with his primary care regarding chronic pain management if his pain was to continue. He was offered a dose of Toradol or ibuprofen in the emergency room and declined both. He was discharged home in stable condition - Vital Signs Vital signs: Temp Pulse Resp BP Pulse Ox 98.0 F 83 16 140/97 H 98 04/26/18 02:48 04/26/18 02:48 04/26/18 02:48 04/26/18 02:48 04/26/18 02:48 - Laboratory Result Diagrams: 04/25/18 21:45 04/25/18 21:45 Laboratory results interpreted by me: 04/25/18 04/25/18 21:45 21:45 WBC 12.2 H RDW 14.9 H Carbon Dioxide 31 H BUN 4 L Discharge - Discharge Clinical Impression: Bite, snake Qualifiers: Encounter type: subsequent encounter Qualified Code(s): W59.11XD - Bitten by nonvenomous snake, subsequent encounter Condition: Stable Disposition: HOME, SELF-CARE Instructions: Snakebites ([facility]) Additional Instructions: Please return to the emergency department if you have any worsening, or concern of your symptoms. Please return to the emergency department if you develop chest pain, difficulty breathing, severe abdominal pain, or ongoing vomiting. Please follow-up with your primary care physician in 2-3 days and any other recommended physicians. If prescribed, take all medications as directed. If you have any questions or concerns do not hesitate to return the emergency department for evaluation. [] Referrals: NATIVIDAD MARINO PA-C [Primary Care Provider] - Follow up as needed
== END 2018-04-26 06:24 | disposition home or self-care (01) ==
LOC: ER 19:37
DX: S41.151D Open bite of right upper arm, subsequent encounter (principal); W59.1 Contact with nonvenomous snakes; F17.200 Nicotine dependence, unspecified, uncomplicated; Z88.1 Allergy status to other antibiotic agents; Z88.6 Allergy status to analgesic agent
CPT/HCPCS: 36415; 80053; 85025; 87040; 99281

== ENCOUNTER 2019-03-13 17:32 | Emergency (ER) | payer SELFPAY ==
[2019-03-13] MEDS ORDERED: OXYCODONE-ACETAMINOPHEN 5-325 MG TABLET PO ONE (19:30)
--- NOTE | 2019-03-13 19:34 | ER Document Report ---
ED Skin Rash/Insect Bite/Abscs - General Chief Complaint: Skin Problem Stated Complaint: SPIDER BITE ON LEG Time Seen by Provider: 03/13/19 19:22 Notes: 33-year-old male presents to the emergency department with concern for a bug bite on his distal left calf. He said he was sleeping last night when he felt something "pinch" him and he tried killing it with his boot and went back to sleep. Patient states he woke up this morning he was in acute pain and his foot is in a position of plantar flexion for comfort and he is unable to dorsiflex secondary to pain. He is able with effort to move the joint.. Patient is unable to bear weight on it and is in significant pain. Patient denies any fevers or chills, denies any other symptoms other than the pain. Denies any concerning neurologic symptoms like paralysis, paresthesias of the left foot or leg, weakness. TRAVEL OUTSIDE OF THE [place] IN LAST 30 DAYS: No - Related Data Allergies/Adverse Reactions: erythromycin base [Erythromycin Base] Allergy (Intermediate, Verified 04/23/18 12:30) stabbing abdominal pains ibuprofen [From Motrin] Allergy (Verified 04/23/18 12:30) Past Medical History - Social History Smoking Status: Current Every Day Smoker Family History: Reviewed & Not Pertinent Patient has suicidal ideation: No Patient has homicidal ideation: No - Past Medical History Cardiac Medical History: Denies: Hx Congestive Heart Failure, Hx Coronary Artery Disease, Hx Heart Attack, Hx Hypertension Pulmonary Medical History: Denies: Hx Asthma, Hx Bronchitis, Hx COPD, Hx Pneumonia, Hx Tuberculosis Neurological Medical History: Denies: Hx Migraine, Hx Seizures Endocrine Medical History: Denies: Hx Diabetes Mellitus Type 1, Hx Diabetes Mellitus Type 2 Renal/ Medical History: Denies: Hx Benign Prostatic Hyperplasia, Hx End Stage Renal Disease, Hx Epididymitis, Hx Kidney Stones, Hx Peritoneal Dialysis, Hx Renal Insufficiency, Hx Testicular Torsion Malignancy Medical History: Denies Hx Testicular Cancer GI Medical History: Denies: Hx Cirrhosis, Hx Gastritis, Hx Gastroesophageal Reflux Disease, Hx Liver Failure, Hx Ulcer Musculoskeletal Medical History: Denies Hx Arthritis, Denies Hx Multiple Sclerosis Psychiatric Medical History: Denies: Hx Anxiety, Hx Bipolar Disorder, Hx Depression, Hx Schizophrenia Infectious Medical History: Denies: Hx MRSA Past Surgical History: Reports: Hx Oral Surgery - dental, Hx Tonsillectomy, Other - Right forearm laceration - Immunizations Immunizations up to date: Yes Hx Diphtheria, Pertussis, Tetanus Vaccination: Yes - 2013 Review of Systems - Review of Systems Constitutional: See HPI EENT: No symptoms reported Cardiovascular: No symptoms reported Respiratory: No symptoms reported Gastrointestinal: No symptoms reported Genitourinary: No symptoms reported Male Genitourinary: No symptoms reported Musculoskeletal: No symptoms reported Skin: No symptoms reported Hematologic/Lymphatic: See HPI Neurological/Psychological: See HPI Physical Exam - Vital signs Vitals: Temp Pulse Resp BP Pulse Ox 98.2 F 62 18 116/63 98 03/13/19 17:45 03/13/19 17:45 03/13/19 17:45 03/13/19 17:45 03/13/19 17:45 - Notes Notes: PHYSICAL EXAMINATION: Reviewed vital signs and charting by RN GENERAL: Alert, interacts well. No acute distress. HEAD: Normocephalic, atraumatic. EYES: Pupils equal and round. Extraocular movements intact. ENT: Oral mucosa moist, tongue midline. NECK: Full range of motion. Trachea midline. EXTREMITIES: Patient's left foot is in a position of plantarflexion but he is able to move it back and forth. There is pain with passive movement on range of motion as well. PSYCH: Normal affect, normal mood. SKIN: Warm, dry, normal turgor. A 1 cm round hypopigmented area raised with some mild edema that is acutely tender to palpation. No clear visualization of any bite gan of any type. Course - Re-evaluation Re-evalutation: 03/13/19 22:24 Patient overall presents with probable bite versus subcutaneous lesion. Patient is unable to dorsiflex without forcing his foot down using his body weight and gravity and then so he is unable to bear weight on it. Basic lab work was obtained and there is no evidence of hemolytic anemia or polycythemia. Incidentally his potassium was 2.9 and an EKG was obtained and plan is to place a saline lock and replenish his potassium. A magnesium was also added. Pending the magnesium I will replenish magnesium if necessary. Patient is alert and oriented at this time. 03/13/19 23:40 Magnesium was 2.0. At this time no need to replenish magnesium. Patient is receiving potassium rider and received potassium chloride 40 mEq p.o. EKG showed a sinus arrhythmia with a heart rate of 66 and QTC of 461 patient is requesting pain medication which is concerning as he just received fentanyl approximately 1 hour ago and this is a suspicious pattern. Patient's pain does seem to be out of proportion to the injury but his CK was 132 so I have very low concern for a rhabdomyolysis or a compartment syndrome. Plan is to put him on doxycycline for 1 week and have him follow-up with his primary doctor. After his infusion is complete he will be stable for discharge. 03/13/19 23:43 - Vital Signs Vital signs: Temp Pulse Resp BP Pulse Ox 98.2 F 62 15 116/71 98 03/13/19 17:45 03/13/19 17:45 03/14/19 00:01 03/14/19 00:00 03/14/19 00:01 - Laboratory Result Diagrams: 03/13/19 21:10 03/13/19 21:10 Laboratory results interpreted by me: 03/13/19 03/13/19 03/13/19 21:10 21:10 23:35 WBC 10.8 H Potassium 2.9 L* Chloride 94 L Carbon Dioxide 33 H BUN 4 L Glucose 113 H Urine Protein 100 H Urine Urobilinogen 4.0 H Urine Ascorbic Acid 40 H Discharge - Discharge Clinical Impression: Hypokalemia Bug bite Qualifiers: Encounter type: initial encounter Qualified Code(s): W57.XXXA - Bitten or stung by nonvenomous insect and other nonvenomous arthropods, initial encounter Condition: Good Disposition: HOME, SELF-CARE Additional Instructions: You were seen in the emergency department this evening for a bug bite. We incidentally found that your potassium was very low so we replenished it with IV potassium and oral potassium. We also checked your magnesium and that was a normal level. For your bug bite I am going to place you on doxycycline for 1 week. You should take this medication 2 times per day. 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 I am sending you home with a very short course of pain medication to help get you through this acute phase. If you develop worsening redness, you start getting necrosis of the injured area, you get paralysis of your leg, you develop high fever, or you have any other concerning symptoms please merely return to the emergency department. Prescriptions: RX: Doxycycline Hyclate 100 mg PO BID #14 capsule
[2019-03-13 21:33] LABS: ABSOLUTE BASOPHILS # (AUTO) 0.1 10^3/uL (0.0-0.2); ABSOLUTE EOSINOPHILS # (AUTO) 0.1 10^3/uL (0.0-0.6); ABSOLUTE MONOCYTES (AUTO) 0.7 10^3/uL (0.1-1.4); ABSOLUTE NEUT (AUTO) 6.9 10^3/uL (1.7-8.2); BASOPHILS % (AUTO) 0.7 % (0-2); EOSINOPHILS % (AUTO) 1.3 % (0-6); HEMATOCRIT 40.9 % (37.9-51.0); HEMOGLOBIN 14.2 g/dL (13.5-17.0); LYMPHOCYTES % (AUTO) 27.9 % (13-45); MEAN CORPUSCULAR HEMOGLOBIN 31.1 pg (27.0-33.4); MEAN CORPUSCULAR HGB CONC 34.8 g/dL (32.0-36.0); MEAN CORPUSCULAR VOLUME 89 fl (80-97); MONOCYTES % (AUTO) 6.6 % (3-13); PLATELET COUNT 295 10^3/uL (150-450); RED BLOOD COUNT 4.58 10^6/uL (4.35-5.55); RED CELL DISTRIBUTION WIDTH 13.3 % (11.5-14.0); SEGMENTED NEUTROPHILS % (AUTO) 63.5 % (42-78); TOTAL CELLS COUNTED % (AUTO) 100 %; WHITE BLOOD COUNT 10.8 10^3/uL (4.0-10.5)
[2019-03-13 21:39] LABS: ALBUMIN 4.2 g/dL (3.5-5.0); ALKALINE PHOSPHATASE 53 U/L (38-126); ANION GAP 11 (5-19); ASPARTATE AMINO TRANSFERASE 22 U/L (17-59); BILIRUBIN,DIRECT 0.2 mg/dL (0.0-0.4); BLOOD UREA NITROGEN 4 mg/dL (7-20); CALCIUM 9.2 mg/dL (8.4-10.2); CARBON DIOXIDE 33 mmol/L (22-30); CHLORIDE 94 mmol/L (98-107); GLUCOSE 113 mg/dL (75-110); TOTAL PROTEIN 6.6 g/dL (6.3-8.2)
[2019-03-13 21:49] LABS: POTASSIUM 2.9 mmol/L (3.6-5.0)
[2019-03-13] MEDS ORDERED: POTASSIUM CHLORIDE 10 MEQ CAPSULE.ER PO ONE (22:11)
[2019-03-13] MEDS ORDERED: POTASSI CL 20 MEQ/50 ML RIDER 20 MEQ/50 ML RTUPB IV ONE (22:11)
[2019-03-13] MEDS ORDERED: FENTANYL CITRATE INJ/PF 100 MCG/2 ML AMPUL IV ONE (22:31)
[2019-03-13] MEDS ORDERED: HYDROCODONE/ACETAMINOPHEN 5-325 MG (6 TAB/ER DISP) PO PRN (23:44)
[2019-03-13 23:51] LABS: APPEARANCE,URINE CLEAR; BILIRUBIN,URINE NEGATIVE (NEGATIVE); COLOR,URINE YELLOW; GLUCOSE, URINE NEGATIVE (NEGATIVE); KETONES,URINE NEGATIVE (NEGATIVE); LEUKOCYTE ESTERASE,URINE NEGATIVE (NEGATIVE); NITRITE,URINE NEGATIVE (NEGATIVE); PROTEIN,URINE 100 mg/dL (NEGATIVE); URINE SPECIFIC GRAVITY 1.018
[2019-03-14 00:25] VITALS: BP 116/71
--- NOTE | 2019-03-14 06:43 | EKG REPORT ---
SEVERITY:- ABNORMAL ECG - SINUS ARRHYTHMIA, RATE 56-75 NONSPECIFIC INTRAVENTRICULAR CONDUCTION DELAY : Confirmed by: Kavon Brito MD 14-Mar-2019 06:42:38
== END 2019-03-14 00:40 | disposition home or self-care (01) ==
LOC: ER 17:32
DX: S81.852A Open bite, left lower leg, initial encounter (principal); E87.6 Hypokalemia; W57.XXXA Bitten or stung by nonvenomous insect and other nonvenomous arthropods, initial encounter; F17.200 Nicotine dependence, unspecified, uncomplicated
CPT/HCPCS: 93005; 36415; 82550; 83735; 85025; 80053; 81001; 93010; J3010; J3480; 96365; 96366; 96375; 99283

== ENCOUNTER 2019-04-27 19:09 | Emergency (ER) | payer SELFPAY ==
--- NOTE | 2019-04-27 20:03 | ER Document Report ---
ED Medical Screen (RME) - General Chief Complaint: Chest Pain Stated Complaint: CHEST PAIN Time Seen by Provider: 04/27/19 19:57 Mode of Arrival: Ambulatory Information source: Patient Notes: This 33-year-old male with history of substance abuse presents emergency department with complaints of midsternal chest pain that occurred prior to arrival. Patient reports he has been here before with chest pain and his potassium is low so he went on the cafeteria and drink some orange juice ate a banana. He reports chest pain is relieved. He denies vomiting fever diarrhea. He denies substance abuse now. Reports he is taking Suboxone. Denies history of cocaine. I have greeted and performed a rapid initial assessment of this patient. A comprehensive ED assessment and evaluation of the patient, analysis of test results and completion of the medical decision making process will be conducted by additional ED providers. Dictation of this chart was performed using voice recognition software; therefore, there may be some unintended grammatical errors. TRAVEL OUTSIDE OF THE [place] IN LAST 30 DAYS: No - Related Data Allergies/Adverse Reactions: erythromycin base [Erythromycin Base] Allergy (Intermediate, Verified 04/23/18 12:30) stabbing abdominal pains ibuprofen [From Motrin] Allergy (Verified 04/23/18 12:30) Past Medical History - Social History Frequency of alcohol use: None - Past Medical History Cardiac Medical History: Denies: Hx Congestive Heart Failure, Hx Coronary Artery Disease, Hx Heart Attack, Hx Hypertension Pulmonary Medical History: Denies: Hx Asthma, Hx Bronchitis, Hx COPD, Hx Pneumonia, Hx Tuberculosis Neurological Medical History: Denies: Hx Migraine, Hx Seizures, Hx Parkinson's Disease Endocrine Medical History: Denies: Hx Diabetes Mellitus Type 1, Hx Diabetes Mellitus Type 2 Renal/ Medical History: Denies: Hx Benign Prostatic Hyperplasia, Hx End Stage Renal Disease, Hx Epididymitis, Hx Kidney Stones, Hx Peritoneal Dialysis, Hx Renal Insufficiency, Hx Testicular Torsion Malignancy Medical History: Denies Hx Testicular Cancer GI Medical History: Denies: Hx Cirrhosis, Hx Gastritis, Hx Gastroesophageal Reflux Disease, Hx Liver Failure, Hx Ulcer Musculoskeltal Medical History: Denies Hx Arthritis, Denies Hx Multiple Sclerosis Psychiatric Medical History: Denies: Hx Anxiety, Hx Bipolar Disorder, Hx Depression, Hx Schizophrenia Infectious Medical History: Denies: Hx MRSA Past Surgical History: Reports: Hx Oral Surgery - dental, Hx Tonsillectomy, Other - Right forearm laceration - Immunizations Immunizations up to date: Yes Hx Diphtheria, Pertussis, Tetanus Vaccination: Yes - 2013 Physical Exam - Vital signs Vitals: Temp Pulse Resp BP Pulse Ox 98.1 F 59 L 18 123/68 97 04/27/19 19:20 04/27/19 19:20 04/27/19 19:20 04/27/19 19:20 04/27/19 19:20 Course - Vital Signs Vital signs: Temp Pulse Resp BP Pulse Ox 98.1 F 59 L 18 123/68 97 04/27/19 19:20 04/27/19 19:20 04/27/19 19:20 04/27/19 19:20 04/27/19 19:20
--- NOTE | 2019-04-27 20:57 | RADIOLOGY REPORT (SQ) ---
EXAM DESCRIPTION: [facility]: XR CHEST 2 VIEWS Views: 2 CLINICAL HISTORY: 33 years Male, cp COMPARISON: None. FINDINGS: The lungs are clear. No pneumothorax or significant pleural effusion. Cardiomediastinal silhouette is within normal limits. Bony structures are unremarkable for age. IMPRESSION: 1. No acute cardiothoracic abnormality.
[2019-04-27 21:14] LABS: ABSOLUTE BASOPHILS # (AUTO) 0.1 10^3/uL (0.0-0.2); ABSOLUTE EOSINOPHILS # (AUTO) 0.2 10^3/uL (0.0-0.6); ABSOLUTE LYMPHOCYTES (AUTO) 2.9 10^3/uL (0.5-4.7); ABSOLUTE MONOCYTES (AUTO) 0.5 10^3/uL (0.1-1.4); ABSOLUTE NEUT (AUTO) 5.4 10^3/uL (1.7-8.2); BASOPHILS % (AUTO) 0.9 % (0-2); HEMATOCRIT 40.4 % (37.9-51.0); HEMOGLOBIN 14.1 g/dL (13.5-17.0); LYMPHOCYTES % (AUTO) 32.1 % (13-45); MEAN CORPUSCULAR HEMOGLOBIN 30.9 pg (27.0-33.4); MEAN CORPUSCULAR HGB CONC 34.8 g/dL (32.0-36.0); MEAN CORPUSCULAR VOLUME 89 fl (80-97); MONOCYTES % (AUTO) 5.6 % (3-13); PLATELET COUNT 287 10^3/uL (150-450); RED BLOOD COUNT 4.56 10^6/uL (4.35-5.55); SEGMENTED NEUTROPHILS % (AUTO) 59.4 % (42-78); TOTAL CELLS COUNTED % (AUTO) 100 %
[2019-04-27 21:40] LABS: ALBUMIN 4.2 g/dL (3.5-5.0); ALKALINE PHOSPHATASE 56 U/L (38-126); ANION GAP 8 (5-19); ASPARTATE AMINO TRANSFERASE 26 U/L (17-59); BILIRUBIN,DIRECT 0.2 mg/dL (0.0-0.4); BILIRUBIN,TOTAL 0.9 mg/dL (0.2-1.3); BLOOD UREA NITROGEN 4 mg/dL (7-20); CALCIUM 9.4 mg/dL (8.4-10.2); CARBON DIOXIDE 33 mmol/L (22-30); CHLORIDE 96 mmol/L (98-107); CREATINE KINASE 128 U/L (55-170); GLUCOSE 77 mg/dL (75-110); POTASSIUM 3.9 mmol/L (3.6-5.0); TOTAL PROTEIN 6.7 g/dL (6.3-8.2)
--- NOTE | 2019-04-28 00:39 | ER Document Report ---
ED General - General Chief Complaint: Chest Pain Stated Complaint: CHEST PAIN Time Seen by Provider: 04/27/19 19:57 Mode of Arrival: Ambulatory Notes: Patient is a 33-year-old male that comes to the emergency department for chief complaint of pain in the middle of his chest, he states pain is intermittently sharp, he also has noticed it hurts when he takes of breath. He denies nausea vomiting, injury, fever/chills, or any other locations of pain. Patient states that after eating eggs he felt better. He does state that he started working out again this week as well. He states that he has been told his potassium level might be low so he ate bananas and he wants to know what his potassium levels today. He states she has a history of prescription drug abuse and he is now on Suboxone, he denies ever using any drugs, he denies any recent drug use. He denies any other medications or diagnosed medical problems. He does smoke. TRAVEL OUTSIDE OF THE [place] IN LAST 30 DAYS: No - Related Data Allergies/Adverse Reactions: erythromycin base [Erythromycin Base] Allergy (Intermediate, Verified 04/23/18 12:30) stabbing abdominal pains ibuprofen [From Motrin] Allergy (Verified 04/23/18 12:30) Past Medical History - General Information source: Patient - Social History Smoking Status: Current Every Day Smoker Smoking Education Provided: Yes - <3 min Frequency of alcohol use: None Drug Abuse: Prescription drugs Lives with: Parents Family History: Reviewed & Not Pertinent Patient has suicidal ideation: No Patient has homicidal ideation: No - Past Medical History Cardiac Medical History: Denies: Hx Congestive Heart Failure, Hx Coronary Artery Disease, Hx Heart Attack, Hx Hypertension Pulmonary Medical History: Denies: Hx Asthma, Hx Bronchitis, Hx COPD, Hx Pneumonia, Hx Tuberculosis Neurological Medical History: Denies: Hx Migraine, Hx Seizures, Hx Parkinson's Disease Endocrine Medical History: Denies: Hx Diabetes Mellitus Type 1, Hx Diabetes Mellitus Type 2 Renal/ Medical History: Denies: Hx Benign Prostatic Hyperplasia, Hx End Stage Renal Disease, Hx Epididymitis, Hx Kidney Stones, Hx Peritoneal Dialysis, Hx Renal Insufficiency, Hx Testicular Torsion Malignancy Medical History: Denies Hx Testicular Cancer GI Medical History: Denies: Hx Cirrhosis, Hx Gastritis, Hx Gastroesophageal Reflux Disease, Hx Liver Failure, Hx Ulcer Musculoskeletal Medical History: Denies Hx Arthritis, Denies Hx Multiple Sclerosis Psychiatric Medical History: Denies: Hx Anxiety, Hx Bipolar Disorder, Hx Depression, Hx Schizophrenia Infectious Medical History: Denies: Hx MRSA Past Surgical History: Reports: Hx Oral Surgery - dental, Hx Tonsillectomy, Other - Right forearm laceration - Immunizations Immunizations up to date: Yes Hx Diphtheria, Pertussis, Tetanus Vaccination: Yes - 2013 Review of Systems - Review of Systems Constitutional: No symptoms reported EENT: No symptoms reported Cardiovascular: See HPI Respiratory: No symptoms reported Gastrointestinal: No symptoms reported Genitourinary: No symptoms reported Male Genitourinary: No symptoms reported Musculoskeletal: See HPI Skin: No symptoms reported Hematologic/Lymphatic: No symptoms reported Neurological/Psychological: No symptoms reported Physical Exam - Vital signs Vitals: Temp Pulse Resp BP Pulse Ox 98.1 F 59 L 18 123/68 97 04/27/19 19:20 04/27/19 19:20 04/27/19 19:20 04/27/19 19:20 04/27/19 19:20 - Notes Notes: GENERAL: Alert, interacts well. No acute distress. HEAD: Normocephalic, atraumatic. EYES: Pupils equal, round, and reactive to light. Extraocular movements intact. ENT: Oral mucosa moist, tongue midline. Oropharynx unremarkable. Airway patent. NECK: Full range of motion. Supple. Trachea midline. LUNGS: Clear to auscultation bilaterally, no wheezes, rales, or rhonchi. No respiratory distress. Tenderness with palpation of the anterior chest wall near the sternum, this is worse on the right mid chest wall. No swelling, erythema, severe tenderness. Otherwise unremarkable. HEART: Borderline bradycardic, normal rhythm. No murmur ABDOMEN: Soft, non-tender. Non-distended. Bowel sounds present in all 4 quadrants. GENITOURINARY: Deferred EXTREMITIES: Moves all 4 extremities spontaneously. No edema, normal radial and dorsalis pedis pulses bilaterally. No cyanosis. BACK: no cervical, thoracic, lumbar midline tenderness. No saddle anesthesia, normal distal neurovascular exam. Moves all extremities in full range of motion. NEUROLOGICAL: Alert and oriented x3. Normal speech. Cranial nerves II through XII grossly intact. PSYCH: Normal affect, normal mood. SKIN: Warm, dry, normal turgor. No rashes or lesions noted. Course - Re-evaluation Re-evalutation: Patient with no fever, murmur, or current pain unless I palpate over his chest. Lungs clear. Chest x-ray and EKG without acute findings. Patient very well- appearing. Denies history of IV drug abuse. Based on his examination and pres enting symptoms I have a very low suspicion of ACS, pulmonary embolus, aortic dissection, or endocarditis. Discussed treatment of chest wall pain, follow-up, and return precautions in detail. Patient states understanding and agreement. - Vital Signs Vital signs: Temp Pulse Resp BP Pulse Ox 97.8 F 56 L 18 124/76 99 04/28/19 01:10 04/28/19 01:10 04/27/19 19:20 04/28/19 01:10 04/28/19 01:10 - Laboratory Result Diagrams: 04/27/19 20:58 04/27/19 20:58 Laboratory results interpreted by me: 04/27/19 20:58 Chloride 96 L Carbon Dioxide 33 H BUN 4 L - EKG Interpretation by Me Additional EKG results interpreted by me: EKG shows sinus bradycardia at a rate of 56, no T wave inversions or ST segment changes in consecutive leads, QTC in the normal range. This is without significant change from prior. Discharge - Discharge Clinical Impression: Chest wall pain Condition: Stable Disposition: HOME, SELF-CARE Additional Instructions: Your evaluation is reassuring. This appears to be pain from your chest wall, this can take time to resolve but will resolve with time. You can apply heat of your chest wall, take the muscle relaxer as prescribed especially if this is keeping you awake. Stay hydrated. Your potassium level today was 3.9 which is still in the normal range. Follow-up with primary care. Return if you worsen including passing out, severe worsening pain, difficulty breathing, fevers, vomiting, or any other concerning symptoms. Prescriptions: Cyclobenzaprine HCl [Flexeril 5 mg Tablet] 1 - 2 tab PO TID PRN #15 tablet PRN Reason: Forms: Return to Work
[2019-04-28 01:13] VITALS: BP 124/76
--- NOTE | 2019-04-28 09:16 | EKG REPORT ---
SEVERITY:- ABNORMAL ECG - SINUS RHYTHM NONSPECIFIC INTRAVENTRICULAR CONDUCTION DELAY : Confirmed by: Malik Mosher 28-Apr-2019 09:15:54
== END 2019-04-28 01:13 | disposition home or self-care (01) ==
LOC: ER 19:09
DX: R07.89 Other chest pain (principal); F17.200 Nicotine dependence, unspecified, uncomplicated
CPT/HCPCS: 36415; 71046; 80053; 82550; 84484; 85025; 93005; 93010; 99285